=== PATIENT | female | born 1950 | race Caucasian/White ===

== ENCOUNTER → 2017-05-09 | Outpatient (CLI) | payer OTHER ==
[2017-05-09 10:27] LABS: BASO % 0.8 %; BASO ABS # 0.03 K/uL (0-0.2); COMPLETE YES; EOS % 4.6 %; HEMATOCRIT 38.6 % (37-47); IG% 0.3 %; LYMPH % 39.6 %; LYMPH ABS # 1.45 K/uL (1.2-3.4); MEAN CELL VOLUME 94.4 fL (80-100); MEAN CORPUSCULAR HEMOGLOBIN 31.5 pg (25-34); MEAN CORPUSCULAR HGB CONC 33.4 g/dl (32-36); MONO % 8.7 %; PLATELET COUNT 245 K/uL (130-400); RED BLOOD COUNT 4.09 M/uL (4.2-5.4); WHITE BLOOD COUNT 3.66 K/uL (4.8-10.8)
[2017-05-09 10:48] LABS: ALT/SGPT 20 U/L (12-78); AST/SGOT 17 U/L (15-37); BLOOD UREA NITROGEN 12 mg/dl (7-18); BUN/CREATININE RATIO 17.6 (10-20); CALCIUM 8.9 mg/dl (8.5-10.1); CARBON DIOXIDE 29 mmol/L (21-32); CHLORIDE 106 mmol/L (98-107); CHOLESTEROL 241 mg/dl (0-200); GLUCOSE 92 mg/dl (70-99); SODIUM 141 mmol/L (136-145); TRIGLYCERIDES 91 mg/dl (0-150); VERY LOW DENSITY LIPOPROT CALC 18 mg/dl
[2017-05-09 10:52] LABS: ALB/GLOB RATIO 1.2 (0.9-2); ALKALINE PHOSPHATASE 63 U/L (45-117); CHOLESTEROL/HDL RATIO 4.1; FERRITIN 46.7 ng/ml (8.0-388.0); HDL CHOLESTEROL 59 mg/dl
== END | disposition home or self-care (01) ==
LOC: C.LAB 08:53
PROVIDERS: ATTEND Internal Medicine
DX: D64.9 Anemia, unspecified (principal)

== ENCOUNTER → 2017-05-26 | Outpatient (CLI) | payer OTHER | END | disposition home or self-care (01) | LOC: C.PAPS 11:52 | PROVIDERS: ATTEND Obstetrics & Gynecology | DX: Z12.4 Encounter for screening for malignant neoplasm of cervix (principal); Z11.51 Encounter for screening for human papillomavirus (HPV) ==

== ENCOUNTER 2017-09-30 15:04 | Observation (INO) | payer OTHER ==
[~2017-09-30] VITALS: Ht 171.4 cm; Wt 70.7 kg
[2017-09-30 15:38] LABS: BASO % 0.1 %; BASO ABS # 0.01 K/uL (0-0.2); EOS % 1.1 %; EOS ABS # 0.11 K/uL (0-0.5); HEMOGLOBIN 13.3 g/dL (12.0-16.0); IG# 0.02 K/uL (0.00-0.02); LYMPH % 17.3 %; MEAN CELL VOLUME 93.1 fL (80-100); MEAN CORPUSCULAR HEMOGLOBIN 31.7 pg (25-34); MEAN CORPUSCULAR HGB CONC 34.1 g/dl (32-36); MEAN PLATELET VOLUME 9.7 fL (7.4-10.4); MONO % 5.1 %; NEUT % 76.2 %; NEUT ABS # 7.49 K/uL (1.4-6.5); PLATELET COUNT 249 K/uL (130-400); RED CELL DISTRIBUTION WIDTH CV 13.3 % (11.5-14.5); RED CELL DISTRIBUTION WIDTH SD 45.7 fL (36.4-46.3); WHITE BLOOD COUNT 9.83 K/uL (4.8-10.8)
[2017-09-30] MEDS ORDERED: PRLSR20 PO (15:46)
--- NOTE | 2017-09-30 15:50 | EMERGENCY ROOM VISIT NOTE ---
History Report prepared by Jase: Teagan Garcia Under the Supervision of: Dr. Krystian Burrows M.D. First contact with patient: 15:21 Chief Complaint: CHEST PAIN Stated Complaint: CHEST TIGHTNESS Nursing Triage Summary: Chest tightness that was 8/10 earlier and now is completely gone. No cardiac hx. Hx of GERD in the past. History of Present Illness The patient is a 66 year old white female with a past medical history of GERD who presents to the ED with a cc of resolved chest pain beginning 1 hour ago. The patient states that she began feeling chest tightness when she was sitting on the couch today and noted that she was sweating and began feeling nauseous. She notes that she took 2 aspirin without relief of her symptoms and decided to come into the ED after her hands began to tingle. She notes that the episode lasted 30 minutes. Negative cough, arm pain, jaw pain, urinary symptoms, bowel changes, fever, chills, history of heart issues, history of blood clots, current chest pains, leg pain, leg swelling. The patient states that this has happened before and she had a stress test 1.5 years ago that was normal. Source of History: patient Onset: 1 hour ago Position: neck Quality: other (tightness) Timing: resolved Associated Symptoms: + diaphoresis, + nausea, No fevers, No chills, No cough , No urinary symptoms Note: Negative bowel changes, leg pain, leg swelling. Review of Systems See HPI for pertinent positives and negatives. A total of ten systems were reviewed and were otherwise negative. Past Medical & Surgical Medical Problems: (1) Chest pain (2) GERD (gastroesophageal reflux disease) Family History No pertinent family history stated. Social History Smoking Status: Never Smoker Marital Status: Housing Status: lives with significant other Occupation Status: unemployed Current/Historical Medications Scheduled Omeprazole (Prilosec), 20 MG PO Q2D Allergies Coded Allergies: No Known Allergies (Unverified , 09/30/17) Physical Exam Vital Signs Date Time Temp Pulse Resp B/P (MAP) Pulse Ox O2 Delivery O2 Flow Rate FiO2 09/30/17 16:35 77 17 138/75 99 Room Air 09/30/17 15:31 79 09/30/17 15:23 100 Room Air 09/30/17 15:20 100 Room Air 09/30/17 15:20 36.3 84 16 162/86 100 Room Air Physical Exam GENERAL: Awake, alert, well-appearing, NAD HENT: Normocephalic, atraumatic. EYES: Normal conjunctiva. Sclera non-icteric. NECK: Supple. No nuchal rigidity. FROM. RESPIRATORY: CTAB, no rhonchi, wheezing, crackles CARDIAC: RRR, no MRG ABDOMEN: Soft, NTND, BS+ MSK: No chest wall TTP, no LE edema NEURO: GCS 15, CN 2-12 intact, moves all 4s on command SKIN: No rash or jaundice noted. Medical Decision & Procedures ER Provider Diagnostic Interpretation: X-ray: Per my interpretation, radiologist review. CHEST ONE VIEW PORTABLE FINDINGS: The bones soft tissues and hemidiaphragms are normal. The cardiomediastinal silhouette is normal. The lungs are clear. The pulmonary vasculature is normal. IMPRESSION: Negative chest. The above report was generated using voice recognition software. It may contain grammatical, syntax or spelling errors. Electronically signed by: David Porter M.D. 09/30/2017 3:56 PM Dictated Date/Time: 09/30/2017 3:56 PM Laboratory Results 09/30/17 15:15 Red Blood Count 4.19, Mean Corpuscular Volume 93.1, Mean Corpuscular Hemoglobin 31.7, Mean Corpuscular Hemoglobin Concent 34.1, Mean Platelet Volume 9.7, Neutrophils (%) (Auto) 76.2, Lymphocytes (%) (Auto) 17.3, Monocytes (%) (Auto) 5.1, Eosinophils (%) (Auto) 1.1, Basophils (%) (Auto) 0.1, Neutrophils # (Auto) 7.49, Lymphocytes # (Auto) 1.70, Monocytes # (Auto) 0.50, Eosinophils # (Auto) 0.11, Basophils # (Auto) 0.01 09/30/17 15:15 Test 09/30/17 15:15 White Blood Count 9.83 K/uL (4.8-10.8) Red Blood Count 4.19 M/uL (4.2-5.4) Hemoglobin 13.3 g/dL (12.0-16.0) Hematocrit 39.0 % (37-47) Mean Corpuscular Volume 93.1 fL (80-100) Mean Corpuscular Hemoglobin 31.7 pg (25-34) Mean Corpuscular Hemoglobin Concent 34.1 g/dl (32-36) Platelet Count 249 K/uL (130-400) Mean Platelet Volume 9.7 fL (7.4-10.4) Neutrophils (%) (Auto) 76.2 % Lymphocytes (%) (Auto) 17.3 % Monocytes (%) (Auto) 5.1 % Eosinophils (%) (Auto) 1.1 % Basophils (%) (Auto) 0.1 % Neutrophils # (Auto) 7.49 K/uL (1.4-6.5) Lymphocytes # (Auto) 1.70 K/uL (1.2-3.4) Monocytes # (Auto) 0.50 K/uL (0.11-0.59) Eosinophils # (Auto) 0.11 K/uL (0-0.5) Basophils # (Auto) 0.01 K/uL (0-0.2) RDW Standard Deviation 45.7 fL (36.4-46.3) RDW Coefficient of Variation 13.3 % (11.5-14.5) Immature Granulocyte % (Auto) 0.2 % Immature Granulocyte # (Auto) 0.02 K/uL (0.00-0.02) Prothrombin Time 10.5 SECONDS (9.0-12.0) Prothromb Time International Ratio 1.0 (0.9-1.1) Activated Partial Thromboplast Time 24.7 SECONDS (21.0-31.0) Partial Thromboplastin Ratio 1.0 Anion Gap 3.0 mmol/L (3-11) Est Creatinine Clear Calc Drug Dose 70.3 ml/min Estimated GFR () 86.4 Estimated GFR (Non- 74.5 BUN/Creatinine Ratio 15.6 (10-20) Calcium Level 8.9 mg/dl (8.5-10.1) Magnesium Level 2.1 mg/dl (1.8-2.4) Total Bilirubin 0.6 mg/dl (0.2-1) Direct Bilirubin 0.2 mg/dl (0-0.2) Aspartate Amino Transf (AST/SGOT) 108 U/L (15-37) Alanine Aminotransferase (ALT/SGPT) 71 U/L (12-78) Alkaline Phosphatase 81 U/L (45-117) Troponin I < 0.015 ng/ml (0-0.045) Pro-B-Type Natriuretic Peptide 55 pg/ml (0-900) Total Protein 7.2 gm/dl (6.4-8.2) Albumin 3.9 gm/dl (3.4-5.0) Lipase 215 U/L (73-393) Lyme Disease IgG Antibody NEG (NEG) Lyme Disease IgM Antibody NEG (NEG) Laboratory results reviewed by me ECG Indication: chest pain Rate (beats per minute): 77 Rhythm: normal sinus Findings: other (normal intervals, normal axis, t wave flattening AVL, no other STS changes or TWI) ED Course 1520: The patient was evaluated in room A4. A complete history and physical exam was performed. 1638: I reevaluated the patient. She is willing to stay in the hospital. 1703: Discussed the patient's case with Dr. Montes of [facility]. The patient will be evaluated for further treatment and disposition. 1719: Upon reexamination, the patient was doing well. I discussed the test results and treatment plan with her. The patient will be evaluated for further management. Medical Decision The patient is a 66 year old white female with a past medical history of GERD who presents to the ED with a cc of resolved chest pain beginning 1 hour ago. Differential diagnosis: Etiologies such as cardiac ischemia, aortic dissection, pulmonary embolism, pneumonia, pneumothorax, musculoskeletal, infections, pericarditis, myocarditis , esophageal rupture, gastrointestinal, as well as others were entertained. Patient seen and evaluated at bedside. Patient w/ 30 minutes of chest tightness across whole chest w/ associated nausea and diaphoresis/clamminess. Patient w/o SOB, h/o DVT/PE. No family h/o in parents/siblings of early heart disease/[place]. Patient did get two baby ASA and did take tums and PPI w/o relief. Patient EKG nonischemic. Trop neg. patient CXR clear. She did have prior what she describes as likely exercise stress test which she states was negative. Unsure if this was exercise stress ECHO. Patient w/o CP while in department. Concern for possible anginal equivalent at time of CP. Patient admitted for observation, further eval, and trx. Medication Reconcilliation Current Medication List: was personally reviewed by me Blood Pressure Screening Patient's blood pressure: Elevated blood pressure Blood pressure disposition: Elevated BP felt to be situational Consults Time Called: 1700 Consulting Physician: Dr. Montes - [facility] Returned Call: 1703 Discussed the patient's case with Dr. Montes of [facility]. The patient will be evaluated for further treatment and disposition. Impression Primary Impression: Chest pain Scribe Attestation The scribe's documentation has been prepared under my direction and personally reviewed by me in its entirety. I confirm that the note above accurately reflects all work, treatment, procedures, and medical decision making performed by me. Departure Information Dispostion Being Evaluated By Hospitalist Referrals Fidel Benito M.D. (PCP) Patient Instructions My [facility] Problem Qualifiers Primary Impression: Chest pain Chest pain type: unspecified Qualified Codes: R07.9 - Chest pain, unspecified
[2017-09-30 15:51] LABS: PTT PATIENT 24.7 SECONDS (21.0-31.0)
--- NOTE | 2017-09-30 15:57 | DIAGNOSTIC IMAGING REPORT ---
CHEST ONE VIEW PORTABLE CLINICAL HISTORY: CHEST PAIN dyspnea COMPARISON STUDY: No previous studies for comparison. FINDINGS: The bones soft tissues and hemidiaphragms are normal. The cardiomediastinal silhouette is normal. The lungs are clear. The pulmonary vasculature is normal. IMPRESSION: Negative chest. The above report was generated using voice recognition software. It may contain grammatical, syntax or spelling errors. Electronically signed by: David Porter M.D. 09/30/2017 3:56 PM Dictated Date/Time: 09/30/2017 3:56 PM
[2017-09-30 16:02] LABS: ALBUMIN 3.9 gm/dl (3.4-5.0); ALT/SGPT 71 U/L (12-78); AST/SGOT 108 U/L (15-37); BLOOD UREA NITROGEN 13 mg/dl (7-18); CALCIUM 8.9 mg/dl (8.5-10.1); CARBON DIOXIDE 32 mmol/L (21-32); CREATININE 0.83 mg/dl (0.60-1.20); GLUCOSE 176 mg/dl (70-99); LIPASE 215 U/L (73-393); POTASSIUM 4.7 mmol/L (3.5-5.1); SODIUM 137 mmol/L (136-145)
[2017-09-30 16:07] LABS: ALKALINE PHOSPHATASE 81 U/L (45-117); TOTAL PROTEIN 7.2 gm/dl (6.4-8.2)
[2017-09-30] MEDS ORDERED: ASPIRIN 81 MG CHEW PO STA (16:08)
[2017-09-30] MEDS ORDERED: MAGNESIUM HYDROXIDE SUSP 30 ML UDC PO PRN (18:00)
[2017-09-30] MEDS ORDERED: ACETAMINOPHEN 325 MG TAB PO PRN (18:00)
[2017-09-30] MEDS ORDERED: NITROGLYCERIN 0.4 MG SL PER TAB CHARGE SL PRN (18:00)
[2017-09-30] MEDS ORDERED: ONDANSETRON INJ 2 MG/ML 2 ML VIAL IV PRN (18:00)
--- NOTE | 2017-09-30 18:08 | History and Physical ---
History & Physical Date & Time of Service: Sep 30, 2017 at 17:57 Chief Complaint: Chest Tightness Primary Care Physician: Fidel Benito M.D. History of Present Illness Source: patient 66 y/o F c/o chest pain. Pt states that around 1:30 or 2p today she was sitting watching television and had sudden onset of anterior chest pain. She became sweaty and nauseated. Her hands became tingly and she felt like she might pass out. She thought maybe it was reflux and took TUMS. This did not help so she took an omeprazole which also did not help. Her brought her a cold wash cloth and that did not help. She took 2 81mg aspirin and they called EMT. She was given 2 more 81mg aspirin en route. She now feels at her usual. She has had this same chest pain and lightheadedness in the past, but never with hand tingling. This has happened 4 times prior, the last being about 1.5-2 yrs ago. She had a stress test as an outpt and that was neg. Pt states she does occasionally pass out, but not recently. She states that she had a very relaxing morning today, and in fact was still in her pajamas. She denies any anxiety prior to this event. She states that she was with her 1 and 3 y/o grandchildren yesterday and was able to play with them and interact with them as she would usually do, which is fairly actively. She has felt well recently otherwise. She has been eating well. Pt states that just [employer] her sx resolved and they have not returned. Pt states that she has been taking omeprazole for many years, however her PCP recently advised that she should taper off of this medication due to side effects. She started taking it QOD about 4 months ago and had no issues with this, so she started to take it about 2x/week several weeks ago. Pt denies fever, SOB, abd pain, v/c/d, LE pain or swelling. Pt states her 23 y/o daughter is currently being worked up for resting tachycardia of unknown origin. Pt has not had any indication of similar issues for herself. Past Medical/Surgical History Medical Problems: (1) GERD (gastroesophageal reflux disease) Status: Chronic Family History Denies hx of clotting, CVA, [place] Social History Smoking Status: Never Smoker Alcohol Use: socially (on the weekends) Drug Use: none Marital Status: Occupational Status: unemployed Allergies Coded Allergies: No Known Allergies (Unverified , 09/30/17) Home Medications Scheduled Omeprazole (Prilosec), 20 MG PO Q2D Review of Systems Pertinent positives and negatives reviewed in HPI--all others negative Physical Exam Vital Signs Date Time Temp Pulse Resp B/P (MAP) Pulse Ox O2 Delivery O2 Flow Rate FiO2 09/30/17 16:35 77 17 138/75 99 Room Air 09/30/17 15:31 79 09/30/17 15:23 100 Room Air 09/30/17 15:20 100 Room Air 09/30/17 15:20 36.3 84 16 162/86 100 Room Air General Appearance: WD/WN, no apparent distress Head: normocephalic, atraumatic Eyes: normal inspection, EOMI, sclerae normal Respiratory/Chest: normal breath sounds, no respiratory distress Cardiovascular: regular rate, rhythm, no edema Abdomen/GI: non tender, soft Extremities/Musculoskelatal: no calf tenderness, no pedal edema Neurologic/Psych: alert, normal mood/affect, oriented x 3 Skin: normal color, warm/dry Diagnostics Laboratory Results Results Past 24 Hours Test 09/30/17 15:15 09/30/17 17:53 Range/Units White Blood Count 9.83 4.8-10.8 K/uL Red Blood Count 4.19 4.2-5.4 M/uL Hemoglobin 13.3 12.0-16.0 g/dL Hematocrit 39.0 37-47 % Mean Corpuscular Volume 93.1 80-100 fL Mean Corpuscular Hemoglobin 31.7 25-34 pg Mean Corpuscular Hemoglobin Concent 34.1 32-36 g/dl Platelet Count 249 130-400 K/uL Mean Platelet Volume 9.7 7.4-10.4 fL Neutrophils (%) (Auto) 76.2 % Lymphocytes (%) (Auto) 17.3 % Monocytes (%) (Auto) 5.1 % Eosinophils (%) (Auto) 1.1 % Basophils (%) (Auto) 0.1 % Neutrophils # (Auto) 7.49 1.4-6.5 K/uL Lymphocytes # (Auto) 1.70 1.2-3.4 K/uL Monocytes # (Auto) 0.50 0.11-0.59 K/uL Eosinophils # (Auto) 0.11 0-0.5 K/uL Basophils # (Auto) 0.01 0-0.2 K/uL RDW Standard Deviation 45.7 36.4-46.3 fL RDW Coefficient of Variation 13.3 11.5-14.5 % Immature Granulocyte % (Auto) 0.2 % Immature Granulocyte # (Auto) 0.02 0.00-0.02 K/uL Prothrombin Time 10.5 9.0-12.0 SECONDS Prothromb Time International Ratio 1.0 0.9-1.1 Activated Partial Thromboplast Time 24.7 21.0-31.0 SECONDS Partial Thromboplastin Ratio 1.0 Sodium Level 137 136-145 mmol/L Potassium Level 4.7 3.5-5.1 mmol/L Chloride Level 102 98-107 mmol/L Carbon Dioxide Level 32 21-32 mmol/L Anion Gap 3.0 3-11 mmol/L Blood Urea Nitrogen 13 7-18 mg/dl Creatinine 0.83 0.60-1.20 mg/dl Est Creatinine Clear Calc Drug Dose 70.3 ml/min Estimated GFR () 86.4 Estimated GFR (Non- 74.5 BUN/Creatinine Ratio 15.6 10-20 Random Glucose 176 70-99 mg/dl Calcium Level 8.9 8.5-10.1 mg/dl Magnesium Level 2.1 1.8-2.4 mg/dl Total Bilirubin 0.6 0.2-1 mg/dl Direct Bilirubin 0.2 0-0.2 mg/dl Aspartate Amino Transf (AST/SGOT) 108 15-37 U/L Alanine Aminotransferase (ALT/SGPT) 71 12-78 U/L Alkaline Phosphatase 81 45-117 U/L Troponin I < 0.015 0-0.045 ng/ml Pro-B-Type Natriuretic Peptide 55 0-900 pg/ml Total Protein 7.2 6.4-8.2 gm/dl Albumin 3.9 3.4-5.0 gm/dl Lipase 215 73-393 U/L CXR normal Normal EKG Impression Assessment and Plan 66 y/o F who was admitted on 09/30 for observation for chest pain Chest pain: ACS vs PE vs reflux seem most likely EKG neg, trop neg x1, serial pending Neg stress 1.5 years ago, will hold on repeat at this time Ddimer pending Lyme pending CBC, PRP, BNP WNL t/c CT vs stress test depending on return of sx vs + ddimer GERD: holding PPI given otherwise tolerating taper off Other: Full code, specifies she would not want prolonged mechanical life support or feeding tubes Ambulation for DVT proph given likely short duration of stay Reg diet Level of Care Telemetry Resuscitation Status FULL RESUSCITATION VTE Prophylaxis VTE Risk Assessment Done? Y/N: Yes Risk Level: Low
[2017-09-30] MEDS ORDERED: IV FLUIDS COMPLETED PRN (18:15)
[2017-09-30 18:38] VITALS: BP 133/83; PULSE 67; TEMP 36.7; O2SAT 100; Ht 171.4 cm; Wt 70.7 kg
[2017-09-30 23:46] VITALS: BP 121/76; PULSE 56; TEMP 36.5; O2SAT 99
[2017-10-01 03:06] VITALS: BP 139/69; PULSE 59; TEMP 36.6; O2SAT 98
[2017-10-01 07:12] VITALS: BP 136/81; PULSE 63; TEMP 36.5; O2SAT 99
[2017-10-01 10:46] VITALS: BP 115/73; PULSE 69; TEMP 36.8; O2SAT 98
[2017-10-01] MEDS ORDERED: OMEP20TA PO (12:50)
--- NOTE | 2017-10-01 13:07 | Discharge Instructions ---
Discharge Instructions Date of Service Oct 01, 2017. Admission Reason for Admission: Chest Pain Discharge Discharge Diagnosis / Problem: chest pain due to indigestion Discharge Goals Goal(s): Diagnostic testing, Therapeutic intervention Activity Recommendations Activity Limitations: resume your previous activity . Instructions / Follow-Up Instructions / Follow-Up indigestion - -fortunately your chest pain appears to have been due to indigestion -your cardiac enzymes were negative, effectively ruling out a heart attack -your symptoms were characteristic of reflux, and you are low risk for vascular events (classic risks are going to be male, age, hypertension, hyperlipidemia, tobacco abuse, and strong family history of vascular disease - none of which really appear to fit with you) -- because of all of this, as well as showing no preceding fatigue or decrease in exercise tolerance, as well as having recently had a negative stress test, it doesn't appear that any follow up testing is necessary unless you situation were to change / you were to develop new symptoms /etc -I would suggest for now we manage the reflux more aggressively and then can back off as time goes by if you're doing well: -resume taking the omeprazole 20mg every day -if you're having a bad bout of indigestion you can actually take either pepcid or zantac on top of the omeprazole - i would try to limit this to less than 4 times a month -follow how you're doing with the indigestion between now and (arbitrarily ) November 16. if you're doing well, then your family doc can "downgrade" from the daily omeprazole to just an as needed pepcid or zantac (the H2 medicines like pepcid or zantac, while not as potent as the PPI meds like omeprazole, work far better on an as needed -- the PPI meds usually don't work all that well when taken as needed); if you're not doing well, or if you notice significant worsening when you try to downgrade, then you should continue the omeprazole, knowing that in the balance of risks and benefits it's going to do you better to continue the medication than to stop it, and your PCP will just have to follow you for developing any of the PPI related problems, which aren't overly likely in your situation -PPI related problems: the main reason that people try to not have their patients on PPIs (omeprazole and similar meds) for long term care social worker is that because they reduce acid so aggressively, there is risk of malabsorption of nutrients. this can run a wide range - from things like calcium and vitamin D, to magnesium , to vitamin B12, and so on, and also there are studies that link long term care social worker use of PPI type meds to chronic kidney disease. the biggest concern I would have with you if you need to be on a PPI longer term is the calcium/vitamin D/bone health end of the spectrum, simply because as a post-menopausal white female who lives in the [place], this is one of the only major PPI related problems you have pre-existing risk for. in that respect, simply making sure your PCP keeps you adequately replaced with calcium and vitamin D (have them check D levels in a few weeks in the office) and that your bone density is being monitored ( keeping up to date on DEXA scanning) can monitor for, and likely correct for, the possible problems the PPI could cause. as far as the kidney disease risk, since you appear to carry no risk for chronic kidney disease beyond possibly needing to be on a PPI long term care social worker, the most rational balance of risks/benefits there would be that if you have much less indigestion and much better quality of life with the PPI type medicines, and when you try to wean them the indigestion is a real problem, then simply getting labwork once every 6-12 months to follow your kidney function would allow this to be caught early - and if it occurred, it would then be time to stop the PPI and very likely at that point any worsening would almost certainly not worsen further (and again this is all fairly unlikely overall given how otherwise healthy you are) since you were looking for a local PCP having moved to [facility], my recommendation would be to get set up with one of our family medicine residents. as we discussed, there are, of course, upsides and downsides to this approach, but i personally feel the upsides outweigh the downs, and it's really the same approach we take with my family. the biggest thing will be to make sure of continuity - the schedulers will often schedule you with whoever is available when you want to be seen rather than with the same doc - which breaks continuity. when you establish, as you're setting up follow up appointments, it 's best to ask to be seen by the same doc so that you establish good rapport/ continuity and they get to know you. the office is in [address] across [address] from the hospital, phone [phone] Current Hospital Diet Patient's current hospital diet: Regular Diet Discharge Diet Recommended Diet: Regular Diet Pending Studies Studies pending at discharge: no Medical Emergencies . Who to Call and When: Medical Emergencies: If at any time you feel your situation is an emergency, please call 911 immediately. . Non-Emergent Contact Non-Emergency issues call your: Primary Care Provider (call [facility] to establish with one of the residents as above [phone]) . . "Provider Documentation" section prepared by William Valverde. . VTE Core Measure Inpt VTE Proph given/why not?: Treatment not indicated
[2017-10-01 13:09] VITALS: BP 115/73; PULSE 69; TEMP 36.8; O2SAT 98
--- NOTE | 2017-10-01 16:56 | Discharge Summary ---
Discharge Summary Date of Service Oct 01, 2017. Discharge Summary Admission Date: Sep 30, 2017 at 17:56 Discharge Date: Oct 01, 2017 Discharge Disposition: Home Principal Diagnosis: GI related chest pain Procedures: Last 24 Hours Test 09/30/17 18:04 09/30/17 21:01 10/01/17 02:56 Hepatitis C Antibody Screen NEG Troponin I < 0.015 ng/ml < 0.015 ng/ml CHEST ONE VIEW PORTABLE CLINICAL HISTORY: CHEST PAIN dyspnea COMPARISON STUDY: No previous studies for comparison. FINDINGS: The bones soft tissues and hemidiaphragms are normal. The cardiomediastinal silhouette is normal. The lungs are clear. The pulmonary vasculature is normal. IMPRESSION: Negative chest. The above report was generated using voice recognition software. It may contain grammatical, syntax or spelling errors. Electronically signed by: David Porter M.D. 09/30/2017 3:56 PM Item Value Date Time Lyme Disease IgG Antibody NEG 09/30/171514 Lyme Disease IgM Antibody NEG 09/30/17 1515 Last Resulted CBC 09/30/17 15:15 Red Blood Count 4.19, Mean Corpuscular Volume 93.1, Mean Corpuscular Hemoglobin 31.7, Mean Corpuscular Hemoglobin Concent 34.1, Mean Platelet Volume 9.7, Neutrophils (%) (Auto) 76.2, Lymphocytes (%) (Auto) 17.3, Monocytes (%) (Auto) 5.1, Eosinophils (%) (Auto) 1.1, Basophils (%) (Auto) 0.1, Neutrophils # (Auto) 7.49, Lymphocytes # (Auto) 1.70, Monocytes # (Auto) 0.50, Eosinophils # (Auto) 0.11, Basophils # (Auto) 0.01 Last Resulted BMP 09/30/17 15:15 Medication Reconciliation New Medications: Omeprazole (Omeprazole) 20 Mg Tab 1 TAB PO DAILY for 30 Days, #30 TAB 3 Refills Discontinued Medications: Omeprazole (Prilosec) 20 Mg Capcr 20 MG PO Q2D Discharge Exam Physical Exam: General Appearance: no apparent distress Eyes: EOMI ENT: hearing grossly normal Neck: trachea midline Respiratory/Chest: no respiratory distress, no accessory muscle use Extremities: normal inspection Neurologic/Psychiatric: insurance producer II-XII nml as tested, alert, normal mood/affect Skin: normal color, warm/dry Hospital Course Chest pain: ACS vs PE vs reflux as initial ddx -ACS ruled out with negative troponins x 3, atypical sx, low risk patient, and recent negative stress --> stable for home -PE ruled out by negative D-dimer (98% negative predictive value) no tachycardia (strong negative predictive value) and sx resolved -sx most c/w reflux followed by "near-vagal" event (she notes she does have a propensity towards fainting) -stable for home, will have f/u w PCP - she notes since she moved she wants to establish w someone in [facility] GERD: -she had been tapering off due to CKD risk/etc - but appears that right now benefits of PPI outweigh risks - see discharge instructions -omeprazole for now - can use H2 on top of PPI if needed. to catalog GERD sx and frequency over the next ~6-8wks. if nothign bad, then can reduce to PRN H2, if ongoing sx and requires PPI for quality of life and sx control, then can continue and just have PCP f/u periodic BMP as well as stay on top of other malabsorption risks (vitamin D/calcium/DEXA +/- B12/mag, etc) -has EGD scheduled for next week -stable for home Total Time Spent: Greater than 30 minutes This includes examination of the patient, discharge planning, medication reconciliation, and communication with other providers. Discharge Instructions Please refer to the electronic Patient Visit Report (Discharge Instructions) for additional information.
== END 2017-10-01 13:31 | disposition home or self-care (01) ==
LOC: EDBD 15:04 → C.EDA 15:05 → C.2T 17:56 → ENRESERV 18:10
PROVIDERS: ADMIT Family Medicine; ATTEND Family Medicine
DX: R07.89 Other chest pain (principal); K21.9 Gastro-esophageal reflux disease without esophagitis; Z82.49 Family history of ischemic heart disease and other diseases of the circulatory system